=== PATIENT | male | born 1950 | race Caucasian/White ===

== ENCOUNTER 2017-01-11 10:41 | Emergency (ER) | payer MEDICARE, BC ==
[~2017-01-11] VITALS: Ht 167.6 cm; Wt 90.0 kg
[2017-01-11 10:43] VITALS: BP 203/94; PULSE 79; RESP 14; TEMP 98.2; O2SAT 96
[2017-01-11] MEDS ORDERED: FLEC1TAB8 PO (11:23)
[2017-01-11] MEDS ORDERED: ASPI81CH CHEW (11:23)
[2017-01-11] MEDS ORDERED: HYDR-3583 PO (11:23)
[2017-01-11] MEDS ORDERED: PREV30CA11 PO (11:23)
[2017-01-11] MEDS ORDERED: TIZA4TAB PO (11:23)
[2017-01-11] MEDS ORDERED: LEVO.15 PO (11:23)
[2017-01-11] MEDS ORDERED: CLIN1CAP6 PO (11:23)
[2017-01-11] MEDS ORDERED: MORP1TAB26 PO (11:23)
[2017-01-11] MEDS ORDERED: MEDR4PAK PO (11:24)
[2017-01-11 11:41] LABS: AUTOMATED NEUTROPHIL # 8.9 TH/MM3 (1.8-7.7); BASOPHIL # 0.1 TH/MM3 (0-0.2); EOSINOPHIL # 0.3 TH/MM3 (0-0.4); EOSINOPHIL % 2.7 % (0.0-4.0); HEMO FLAGS DIFF FINAL; LYMPH % 8.7 % (9.0-44.0); MEAN CELL VOLUME 76.1 FL (80.0-100.0); MEAN CORPUSCULAR HEMOGLOBIN 24.6 PG (27.0-34.0); MEAN CORPUSCULAR HGB CONC 32.4 % (32.0-36.0); MONO % 11.5 % (0.0-8.0); NEUT % 76.1 % (16.0-70.0); PLATELET COUNT 358 TH/MM3 (150-450); RED BLOOD COUNT 4.34 MIL/MM3 (4.50-5.90); RED CELL DISTRIBUTION WIDTH 17.1 % (11.6-17.2); WHITE BLOOD COUNT 11.8 TH/MM3 (4.0-11.0)
[2017-01-11 11:48] LABS: APTT (PATIENT) 34.1 SEC (24.3-30.1); INTERNATIONAL NORMALIZED RATIO 1.1 RATIO; PROTHROMBIN TIME - PATIENT 12.1 SEC (9.8-11.6)
[2017-01-11 11:55] LABS: ANION GAP 8 MEQ/L (5-15); AST (GOT) 12 U/L (15-37); BLOOD UREA NITROGEN 16 MG/DL (7-18); CHLORIDE 101 MEQ/L (98-107); GLOMERULAR FILTRATION RATE 85 ML/MIN (>89); POTASSIUM 3.9 MEQ/L (3.5-5.1); SODIUM (NA) 133 MEQ/L (136-145)
[2017-01-11 12:00] LABS: ALKALINE PHOSPHATASE 97 U/L (45-117); ALT (GPT) 15 U/L (12-78); TOTAL BILIRUBIN ADULT 0.4 MG/DL (0.2-1.0)
--- NOTE | 2017-01-11 12:26 | RADRPT ---
EXAM DATE/TIME: 01/11/2017 12:03 [facility] COMPARISON: No previous studies available for comparison. INDICATIONS : Cephalgia for 2 weeks, now with loss of right side peripheral vision. RADIATION DOSE: 32.78 CTDIvol (mGy) MEDICAL HISTORY : None SURGICAL HISTORY : None. ENCOUNTER: Initial ACUITY: 1 day PAIN SCALE: 4/10 LOCATION: Bilateral cranial TECHNIQUE: Multiple contiguous axial images were obtained of the head. Using automated exposure control and adj ustment of the mA and/or kV according to patient size, radiation dose was kept as low as reasonably a chievable to obtain optimal diagnostic quality images. DICOM format image data is available electro nically for review and comparison. FINDINGS: CEREBRUM: The ventricles are normal for age. No evidence of midline shift, mass lesion, hemorrhage or acute in farction. No extra-axial fluid collections are seen. POSTERIOR FOSSA: The cerebellum and brainstem are intact. The 4th ventricle is midline. The cerebellopontine angle i s unremarkable. EXTRACRANIAL: The visualized portion of the orbits is intact. SKULL: The calvaria is intact. No evidence of skull fracture. CONCLUSION: Negative; MRI, MRA of brain and carotid suggested. Aurelio Roque MD FACR on January 11, 2017 at 12:24 Board Certified Radiologist. This report was verified electronically.
[2017-01-11] MEDS ORDERED: predniSONE 20 MG TAB PO ONE (12:45)
[2017-01-11 13:00] VITALS: BP 138/67; PULSE 62; RESP 15; O2SAT 96
[2017-01-11] MEDS ORDERED: PRED20 PO (13:14)
--- NOTE | 2017-01-11 13:14 | PD ---
HPI Chief Complaint: Eye Problems/Injury Time Seen by Provider: 10:58 Travel History International Travel<30 days: No Contact w/Intl Traveler<30days: No Traveled to known affect area: No History of Present Illness HPI Patient is a 66-year-old male who comes in complaining of decrease in his peripheral vision. He says he has been having issues with the headache for the past 2 weeks. He says it's been a bandlike headache, worse in his temporal area. He did see his primary care doctor who gave him a Medrol dose pack which she finished a week ago. He says this helped, but then the headache came back. He has noticed worsening of his vision. He denies nausea or vomiting. He denies any weakness to his arms or legs. He denies fever or chills. PFSH Past Medical History Hx Anticoagulant Therapy: Yes (2 BABY ASA DAILY) Anemia: Yes Atrial Fibrillation: Yes Cancer: Yes (benign basal cell carcinoma) Hypertension: Yes Past Surgical History Abdominal Surgery: Yes (hernia) Social History Alcohol Use: Yes (infrequent) Tobacco Use: No Substance Use: No Allergies-Medications (Allergen,Severity, Reaction): Coded Allergies: No Known Allergies (Unverified , 01/11/17) Reported Meds & Prescriptions Reported Meds & Active Scripts Active Prednisone 20 Mg Tab 40 Mg PO DAILY Take 40 mg (2 tablets) daily for 5 days Reported Medrol Dosepak (Methylprednisolone) 4 Mg Dspk 4 Mg PO DIRECTED Per Pharmacist direction Aspirin 81 Mg Chew 81 Mg CHEW DAILY Prevacid (Lansoprazole) 30 Mg Capdr 30 Mg PO DAILY Synthroid (Levothyroxine Sodium) 150 Mcg Tab 150 Mcg PO DAILY Tizanidine (Tizanidine HCl) 4 Mg Tab 4 Mg PO TID Morphine ER (Morphine Sulfate) 60 Mg Tab 60 Mg PO BID Hydrocodone-Acetaminophen 10-325 mg Tab 1 Tab PO Q4H PRN Flecainide (Flecainide Acetate) 50 Mg Tab 50 Mg PO BID Clindamycin (Clindamycin HCl) 300 Mg Cap 300 Mg PO Q6H Review of Systems Except as stated in HPI: all other systems reviewed are Neg General / Constitutional: No: Fever, Chills Eyes: Positive: Blurred Vision HENT: Positive: Headaches, No: Lightheadedness Cardiovascular: No: Chest Pain or Discomfort Respiratory: No: Shortness of Breath Gastrointestinal: No: Nausea, Vomiting Genitourinary: No: Dysuria Musculoskeletal: No: Myalgias Skin: No Rash, No Change in Pigmentation Neurologic: No: Weakness, Dizziness Physical Exam Narrative GENERAL: Awake and alert, in no acute distress. SKIN: Focused skin assessment warm/dry. HEAD: Atraumatic. Normocephalic. EYES: Pupils equal and round. No scleral icterus. Decreased peripheral vision on the right. Extraocular movements intact. ENT: Mucous membranes pink and moist. NECK: Trachea midline. No JVD. CARDIOVASCULAR: Regular rate and rhythm. No murmur appreciated. RESPIRATORY: No accessory muscle use. Clear to auscultation. Breath sounds equal bilaterally. GASTROINTESTINAL: Abdomen soft, non-tender, nondistended. MUSCULOSKELETAL: No obvious deformities. No clubbing. No cyanosis. No edema. NEUROLOGICAL: Awake and alert. No obvious cranial nerve deficits. Motor grossly within normal limits. Normal speech. PSYCHIATRIC: Appropriate mood and affect; insight and judgment normal. Data Data Last Documented VS Vital Signs Date Time Temp Pulse Resp B/P (MAP) Pulse Ox O2 Delivery O2 Flow Rate FiO2 01/11/17 13:35 01/11/17 13:00 62 15 96 01/11/17 10:43 98.2 Orders Orders Iv Access Insert/Monitor (01/11/17 11:07) Complete Blood Count With Diff (01/11/17 11:07) Comprehensive Metabolic Panel (01/11/17 11:07) Westergren Sedimentation Rate (01/11/17 11:07) Act Partial Throm Time (Ptt) (01/11/17 11:07) Prothrombin Time / Inr (Pt) (01/11/17 11:07) Electrocardiogram (01/11/17 ) Troponin I (01/11/17 11:07) Ct Brain W/O Iv Contrast(Rout) (01/11/17 ) Prednisone (Deltasone) (01/11/17 12:45) Ed Discharge Order (01/11/17 13:14) Labs Laboratory Tests Test 01/11/17 11:22 White Blood Count 11.8 TH/MM3 Red Blood Count 4.34 MIL/MM3 Hemoglobin 10.7 GM/DL Hematocrit 33.0 % Mean Corpuscular Volume 76.1 FL Mean Corpuscular Hemoglobin 24.6 PG Mean Corpuscular Hemoglobin Concent 32.4 % Red Cell Distribution Width 17.1 % Platelet Count 358 TH/MM3 Mean Platelet Volume 8.7 FL Neutrophils (%) (Auto) 76.1 % Lymphocytes (%) (Auto) 8.7 % Monocytes (%) (Auto) 11.5 % Eosinophils (%) (Auto) 2.7 % Basophils (%) (Auto) 1.0 % Neutrophils # (Auto) 8.9 TH/MM3 Lymphocytes # (Auto) 1.0 TH/MM3 Monocytes # (Auto) 1.4 TH/MM3 Eosinophils # (Auto) 0.3 TH/MM3 Basophils # (Auto) 0.1 TH/MM3 CBC Comment DIFF FINAL Differential Comment Erythrocyte Sedimentation Rate 60 mm/hr Prothrombin Time 12.1 SEC Prothromb Time International Ratio 1.1 RATIO Activated Partial Thromboplast Time 34.1 SEC Blood Urea Nitrogen 16 MG/DL Creatinine 0.89 MG/DL Random Glucose 102 MG/DL Total Protein 7.1 GM/DL Albumin 2.6 GM/DL Calcium Level 8.4 MG/DL Alkaline Phosphatase 97 U/L Aspartate Amino Transf (AST/SGOT) 12 U/L Alanine Aminotransferase (ALT/SGPT) 15 U/L Total Bilirubin 0.4 MG/DL Sodium Level 133 MEQ/L Potassium Level 3.9 MEQ/L Chloride Level 101 MEQ/L Carbon Dioxide Level 24.0 MEQ/L Anion Gap 8 MEQ/L Estimat Glomerular Filtration Rate 85 ML/MIN Troponin I LESS THAN 0.02 NG/ML MDM Medical Decision Making Medical Screen Exam Complete: Yes Emergency Medical Condition: Yes Differential Diagnosis Temporal cell arteritis versus migraine versus CVA Narrative Course Patient is a 66-year-old male who comes in complaining of decreased vision on the right as well as a bandlike headache. He says currently he is not having any pain. IV established, labs sent. He does have decreased peripheral vision on exam. Labs show elevated ESR to 60. CT of his head performed shows no acute abnormalities. I spoke with Dr. West of neurology who believes this is likely temporal cell arteritis. He advises high-dose steroids and follow-up for temporal artery biopsy. Patient given information to follow up with vascular surgery. Given prednisone and a prescription for prednisone. He is advised follow-up with his primary care doctor. Advised to return to the ED as needed for any worsening symptoms. Diagnosis Primary Impression: Temporal giant cell arteritis Referrals: Tere West MD call for appointment Lele Puri MD call for appointment Patient Instructions: General Instructions, Temporal Arteritis (ED) Additional Instructions: Follow-up with either vascular surgery (Dr. Puri) or ENT (Dr. Sanchez)for biopsy of her temporal artery. Take your steroids as prescribed. Follow-up with her primary care doctor as you will need to be tapered off of the steroids , do not stopped them abruptly. Return to the ED as needed for any worsening symptoms. Scripts Prednisone (Prednisone) 20 Mg Tab 40 MG PO DAILY, #10 TAB 0 Refills Take 40 mg (2 tablets) daily for 5 days Prov: Gabriela Gamboa MD 01/11/17 Disposition: 01 DISCHARGE HOME Condition: Stable Gabriela Gamboa MD Jan 11, 2017 13:14
--- NOTE | 2017-01-11 15:56 | EKG ---
Date Performed: 01/11/2017 Time Performed: 11:30:52 PTAGE: 66 years EKG: Sinus rhythm RIGHT BUNDLE BRANCH BLOCK ABNORMAL ECG Compared to prior electrocardiogram right bundle branch block is now present. PREVIOUS TRACING : 11/16/2004 12.57 DOCTOR: Oumar Aaron Interpretating Date/Time 01/11/2017 15:55:11
== END 2017-01-11 13:40 | disposition home or self-care (01) ==
LOC: NEPC 10:41
DX: M31.6 Other giant cell arteritis (principal); R51 Headache; H54.7 Unspecified visual loss; D64.9 Anemia, unspecified; R70.0 Elevated erythrocyte sedimentation rate; I48.91 Unspecified atrial fibrillation; I10 Essential (primary) hypertension; Z79.82 Long term (current) use of aspirin; Z79.899 Other long term (current) drug therapy
CPT/HCPCS: 70450; 80053; 84484; 85025; 85610; 85652; 85730; 93005; 99285; J7512

== ENCOUNTER 2017-06-13 18:08 | Emergency (ER) | payer MEDICARE, BC ==
[~2017-06-13] VITALS: Ht 167.6 cm; Wt 92.0 kg
[~2017-06-13 18:08] MED LIST: ASPI-516 CHEW; CLIN300C5 PO; FLEC1TAB8 PO; HYDR-3583 PO; LEVO.15 PO; MEDR4PAK PO; MORP1TAB26 PO; PRED20 PO; PREV30CA36 PO; TIZA4TAB PO
[2017-06-13 18:14] VITALS: BP 222/105; PULSE 71; RESP 16; TEMP 98.3; O2SAT 99
--- NOTE | 2017-06-13 19:12 | RADRPT ---
EXAM DATE/TIME: 06/13/2017 19:04 [facility] COMPARISON: No previous studies available for comparison. INDICATIONS : Chest pain. MEDICAL HISTORY : None. SURGICAL HISTORY : None. ENCOUNTER: Initial ACUITY: 1 day PAIN SCORE: 5/10 LOCATION: Bilateral chest FINDINGS: PA and lateral views of the chest demonstrate the lungs to be symmetrically aerated without evidence of mass, infiltrate or effusion. The cardiomediastinal contours are unremarkable. Osseous structure s are intact. CONCLUSION: No evidence of acute cardiopulmonary disease. Fabian Ge MD on June 13, 2017 at 19:10 Board Certified Radiologist. This report was verified electronically.
[2017-06-13 20:01] VITALS: RESP 16; O2SAT 100
[2017-06-13 20:14] VITALS: BP 191/91; RESP 16
[2017-06-13 20:16] VITALS: BP 199/93; RESP 19
[2017-06-13 20:17] VITALS: BP 179/95; RESP 17
--- NOTE | 2017-06-13 20:19 | PD ---
HPI Chief Complaint: Medical Clearance Time Seen by Provider: 20:05 Travel History International Travel<30 days: No Contact w/Intl Traveler<30days: No Traveled to known affect area: No History of Present Illness HPI 67-year-old male presents to emergency department at the request of his search marketing analyst for evaluation of DVTs that were found on ultrasound today. Patient states that about a week ago he developed a pain in his right groin with an associated lump and he had a follow-up ultrasound today. States states that he does have some "numbness" to his anterior thigh. States he also has some acute increased swelling to the right lower extremity. Patient has a history of atrial fibrillation status post ablation 1 week ago at [facility] in [place]. Patient denies fever, chills, chest pain, shortness breath, abdominal pain, leg pain. States he has been on Eliquis 5 mg twice daily for approximately 3 months. Says he has a history of high blood pressure but states he does not any longer. PFSH Past Medical History Hx Anticoagulant Therapy: Yes (eloquis) Anemia: Yes Atrial Fibrillation: Yes Cancer: Yes (benign basal cell carcinoma) Hypertension: Yes Tetanus Vaccination: Unknown Past Surgical History Abdominal Surgery: Yes (hernia) Cardiac Surgery: Yes (ablation) Social History Alcohol Use: Yes (infrequent) Tobacco Use: No Substance Use: No Allergies-Medications (Allergen,Severity, Reaction): Coded Allergies: No Known Allergies (Unverified Adverse Reaction, Unknown, 06/13/17) Reported Meds & Prescriptions Reported Meds & Active Scripts Active Reported Eliquis (Apixaban) 5 Mg Tab 5 Mg PO BID Zantac (Ranitidine HCl) 150 Mg Tab 150 Mg PO BID Atorvastatin (Atorvastatin Calcium) 40 Mg Tab 40 Mg PO HS Tums (Calcium Carbonate (Antacid)) 500 Mg Chew 500 Mg CHEW PRN Prednisone 10 Mg Tab 15 Mg PO DAILY Prevacid (Lansoprazole) 30 Mg Capdr 30 Mg PO DAILY Synthroid (Levothyroxine Sodium) 150 Mcg Tab 150 Mcg PO DAILY Morphine ER (Morphine Sulfate) 60 Mg Tab 60 Mg PO BID Hydrocodone-Acetaminophen 10-325 mg Tab 1 Tab PO Q4H PRN Flecainide (Flecainide Acetate) 50 Mg Tab 50 Mg PO BID Review of Systems Except as stated in HPI: all other systems reviewed are Neg Physical Exam Narrative GENERAL: WD, WN in NAD SKIN: Focused skin assessment warm/dry. HEAD: Atraumatic. Normocephalic. EYES: Pupils equal and round. No scleral icterus. No injection or drainage. ENT: No nasal bleeding or discharge. Mucous membranes pink and moist. NECK: Trachea midline. No JVD. CARDIOVASCULAR: Regular rate and rhythm. No murmur appreciated. RESPIRATORY: No accessory muscle use. Clear to auscultation. Breath sounds equal bilaterally. GASTROINTESTINAL: Abdomen soft, non-tender, nondistended. Hepatic and splenic margins not palpable. MUSCULOSKELETAL: No obvious deformities. No clubbing. No cyanosis. RLE +1 pitting edema, dorsalis pedis present bilaterally. NEUROLOGICAL: Awake and alert. No obvious cranial nerve deficits. Motor grossly within normal limits. Normal speech. PSYCHIATRIC: Appropriate mood and affect; insight and judgment normal. Data Data Last Documented VS Vital Signs Date Time Temp Pulse Resp B/P (MAP) Pulse Ox O2 Delivery O2 Flow Rate FiO2 06/13/17 21:21 06/13/17 21:16 60 18 97 06/13/17 20:01 Room Air 06/13/17 18:14 98.3 Orders Orders Chest, Pa & Lat (06/13/17 18:49) Ed Discharge Order (06/13/17 21:09) MDM Medical Decision Making Medical Screen Exam Complete: Yes Emergency Medical Condition: Yes Differential Diagnosis DVT, aneurysm, hernia Narrative Course 67-year-old male presents emergency department for evaluation of a DVT that was found today on ultrasound. Patient presented to his search marketing analyst with right groin pain and he referred the patient to ultrasound to rule out possible hernia versus occlusion. The ultrasound results from [facility] states conclusion nonocclusive thrombus in the common femoral and right iliac veins. There are 2 femoral artery pseudoaneurysms identified as described above. According to the note, findings were discussed with Dr. luo patient was advised to go to the emergency department regarding these findings. Note Dr. Walker is his search marketing analyst however, he was unavailable in the office today. Labs and imaging studies ordered. Last Impressions Chest X-Ray 06/13/17 [id number] Signed Impressions: Service Date/Time: May 19:04 - CONCLUSION: No evidence of acute cardiopulmonary disease. Fabian Ge MD I spoke with Dr. Puri. I explained the findings of the ultrasound in depth to him. I explained that patient had an ablation recently and has been on Eliquis for 3 months and states compliance with this medication. He says that patient would not necessarily need admission for bridge to Coumadin. Based on the findings and explanations I provided to him today, he believes that this may be managed as an outpatient. States that patient will need serial ultrasounds to ensure stability. States that patient may follow-up in his office tomorrow for evaluation. I gave the information from this patient and he states that his office would contact the patient in the morning for follow-up. After this consult, I canceled the labs as patient is stable and does not require admission for treatment or monitoring. I discussed the treatment plan with the patient and patient agreed. Patient was happy to go home and will follow up with Dr. Puri as we discussed. I gave the patient the phone number to his office. Patient states understanding will comply. Diagnosis Primary Impression: DVT (deep venous thrombosis) Qualified Codes: I82.411 - Acute embolism and thrombosis of right femoral vein Admitting Information Admitting Physician Requests: Admit Referrals: Vascular Surgeon Additional Instructions: Follow-up with Dr. Puri or tomorrow as discussed. His phone number is . His office should call you tomorrow however, I recommend calling his office in the morning to ensure quick follow-up. Continue your home medications as discussed. If your symptoms persist or worsen return to the emergency department. Disposition: 01 DISCHARGE HOME Condition: Stable Irene Larios Jun 13, 2017 20:19
[2017-06-13] MEDS ORDERED: PRED10 PO (20:23)
[2017-06-13] MEDS ORDERED: APIX5TAB PO (20:23)
[2017-06-13] MEDS ORDERED: ATOR40TA16 PO (20:23)
[2017-06-13] MEDS ORDERED: TUMS500C CHEW (20:23)
[2017-06-13] MEDS ORDERED: ZANT150T2 PO (20:23)
[2017-06-13 21:16] VITALS: BP 135/63; PULSE 60; RESP 18; O2SAT 97
[2017-06-14] MEDS ORDERED: VITA250T3 PO (10:08)
[2017-06-14] MEDS ORDERED: PRED10 PO (10:33)
--- NOTE | 2017-06-15 18:10 | EKG ---
Date Performed: 06/13/2017 Time Performed: 20:52:42 PTAGE: 67 years EKG: Sinus rhythm NORMAL ECG Compared to PREVIOUS TRACING , the right bundle branch block pattern is no longer present. Previous h eart rate was 67, and this heart rate is 62. This could be a rate-related right bundle branch block. PREVIOUS TRACIN01/11/2017 11.30 DOCTOR: Geoffrey Sutton Interpretating Date/Time 06/15/2017 18:09:03
== END 2017-06-13 21:21 | disposition home or self-care (01) ==
LOC: NEPC 18:08
DX: I82.411 Acute embolism and thrombosis of right femoral vein (principal); I10 Essential (primary) hypertension; I48.91 Unspecified atrial fibrillation; D64.9 Anemia, unspecified; R20.0 Anesthesia of skin; Z79.899 Other long term (current) drug therapy
CPT/HCPCS: 71046; 93005

== ENCOUNTER 2017-06-14 09:53 | Day surgery (SDC) | payer MEDICARE, BC ==
[2017-06-14] VITALS (7 sets, daily range): BP systolic 118–198; BP diastolic 59–100; PULSE 62–81; RESP 17–20; TEMP 97.9–98.3; O2SAT 94–98
[~2017-06-14] VITALS: Ht 167.6 cm; Wt 92.3 kg
[~2017-06-14 09:53] MED LIST changes: +APIX5TAB PO; -ASPI-516 CHEW; +ATOR40TA16 PO; -CLIN300C5 PO; -MEDR4PAK PO; +PRED10 PO; -PRED20 PO; -TIZA4TAB PO; +TUMS500C CHEW; +ZANT150T2 PO
[2017-06-14] MEDS ORDERED: VITA250T3 PO (10:08)
[2017-06-14] MEDS ORDERED: SODIUM CHLORIDE 0.9% 1000 ML IV SCH (10:15)
[2017-06-14] MEDS ORDERED: PRED10 PO (10:33)
[2017-06-14 10:47] LABS: AUTOMATED NEUTROPHIL # 5.7 TH/MM3 (1.8-7.7); BASOPHIL % 0.4 % (0.0-2.0); EOSINOPHIL # 0.1 TH/MM3 (0-0.4); EOSINOPHIL % 1.4 % (0.0-4.0); HEMATOCRIT 37.7 % (39.0-51.0); LYMPH % 23.6 % (9.0-44.0); LYMPHOCYTE # 2.1 TH/MM3 (1.0-4.8); MEAN CELL VOLUME 94.6 FL (80.0-100.0); MEAN CORPUSCULAR HEMOGLOBIN 32.5 PG (27.0-34.0); MEAN CORPUSCULAR HGB CONC 34.3 % (32.0-36.0); MEAN PLATELET VOLUME 8.8 FL (7.0-11.0); MONO % 9.8 % (0.0-8.0); MONOCYTE # 0.9 TH/MM3 (0-0.9); NEUT % 64.8 % (16.0-70.0); PLATELET COUNT 143 TH/MM3 (150-450); RED BLOOD COUNT 3.99 MIL/MM3 (4.50-5.90); WHITE BLOOD COUNT 8.7 TH/MM3 (4.0-11.0)
[2017-06-14] MEDS ORDERED: LABETALOL HCL 100 MG/20 ML VIAL IV ONE (11:00)
[2017-06-14] MEDS ORDERED: THROMBIN (TOPICAL) 5,000 UNIT VIAL ONE (11:31)
--- NOTE | 2017-06-14 12:03 | PD.RAD ---
Post Procedure Progress Note Pre Procedure Diagnosis: (1) Postoperative groin pseudoaneurysm Post Procedure Diagnosis: (1) Postoperative groin pseudoaneurysm Procedure Date: Jun 14, 2017 Supervising Radiologist: Teddy Roque Estimated blood loss: none Anesthesia: Local Plan of Activity Patient to Unit: ROPU Patient Condition: Good Additional Comments: Successful thrombosis of the right groin pseudoaneurysm. approximately 1cc total of thrombin administered. Distal flow to leg was intact post procedure. Pt. tolerated the procedure well Full dictated report to follow See PACS Report for procedural detail/treatment Teddy Roque MD Jun 14, 2017 12:02
--- NOTE | 2017-06-14 13:42 | RADRPT ---
EXAM DATE/TIME: 06/14/2017 11:11 [facility] COMPARISON: No previous studies available for comparison. INDICATIONS : Patient with right groin pseudoaneurysm from a cardiac cath 1 week ago. MEDICAL HISTORY : 1. HTN 2. DVT 3. temporal arteritis 4Anemia 5. basal cell carcinoma SURGICAL HISTORY : 1. Lt knee repair 2. Rt hip 3. rotator cuff repair 4. lt carpal tunnel 5. heart cath. ENCOUNTER: Initial ACUITY: 1 week PAIN SCORE: 2/10 LOCATION: Right groin IMAGE SERIES: 5 ACCESS SITE: Right femoral vein MEDICATION(S): 1.) 4 units thrombin IV TECH NOTE: 4 CC THROMBIN WAS INJECTED.SITA SANABRIA MR#:[id number] :48 Exam Dt/Desc: June 14, 2017 TRANSCATH IV OCCLUSSION, FEMORAL PSEUDOANEURYSM, RIGHT PROCEDURE : 1. Ultrasound guided puncture of pseudoaneurysm. 2. Thrombin injection of pseudoaneurysm. The risks, benefits and alternatives to the procedure were explained and verbal and written consent w as obtained. The site was prepped in sterile fashion. Full sterile technique was used, including ca p, mask, sterile gloves and gown and a large sterile sheet. Hand hygiene and 2% chlorhexidine and/or betadine/alcohol prep was utilized per protocol for cutaneous antisepsis. Sterile gel and sterile p robe cover were utilized for ultrasound guidance. The skin and subcutaneous tissues were infiltrate d with local anesthetic solution. Ultrasonography was performed of the pseudoaneurysm in the right groin. With ultrasound guidance the pulsatile mass was accessed and approximately 1.5 cc of thrombin was injected. Followup ultrasound e xamination demonstrates complete stasis of flow within the pseudoaneurysm. The patient tolerated the procedure well. There were no changes in the blood flow to the distal extre mity. CONCLUSION: Uncomplicated occlusion of pseudoaneurysm as above. Teddy Roque MD on June 14, 2017 at 13:38 Board Certified Radiologist. This report was verified electronically.
== END 2017-06-14 13:40 | disposition home or self-care (01) ==
LOC: HROP 09:53 → HRIP 09:53 → HROP 13:40
PROVIDERS: ATTEND Internal Medicine Interventional Cardiology
DX: I72.4 Aneurysm of artery of lower extremity (principal); Y84.0 Cardiac catheterization as the cause of abnormal reaction of the patient, or of later complication, without mention of misadventure at the time of the procedure; I10 Essential (primary) hypertension; I82.509 Chronic embolism and thrombosis of unspecified deep veins of unspecified lower extremity; Z01.818 Encounter for other preprocedural examination
CPT/HCPCS: 36002; 76942; 85025; 85610; 85730

== ENCOUNTER 2017-06-20 11:37 | Day surgery (SDC) | payer MEDICARE, BC ==
[~2017-06-20 11:37] MED LIST changes: -ATOR40TA16 PO; -PREV30CA36 PO; -TUMS500C CHEW; +VITA250T3 PO; -ZANT150T2 PO
[2017-06-20 11:53] VITALS: BP 171/98; PULSE 74; RESP 20; TEMP 98.3; O2SAT 96
--- NOTE | 2017-06-20 17:06 | RADRPT ---
EXAM DATE/TIME: 06/20/2017 12:30 [facility] COMPARISON : INDICATIONS : Follow up pseudo aneurism treatment Right groin OBJECTIVE: Temperature: 98.1 Heart Rate: 74 Blood Pressure: 171/89 Respiratory: 20 Oximetry: 96 HISTORY OF PRESENT ILLNESS: The patient is a pleasant 67-year-old who underwent cardiac ablation for atrial fibrillation at the [facility]. The patient was seen by Dr. Omer on 06/14/17. At that time the patient was noted to have a large pseudoaneurysm in the right groin. The patient was referred to [facility] ER. Th e patient subsequently underwent thrombin administration into the pseudoaneurysm. PAST MEDICAL HISTORY : DVT PHYSICAL EXAMINATION: The examination demonstrates a palpable mass in the right groin. There is diffuse bruising involving the right groin and extending down the right leg. There is no significant swelling of the right lower extremity. The right groin was examined with ultrasound. There is a hard lump in the right groin. This represent s a sizable thrombosed hematoma. Flow was noted within the common femoral artery. The patient has no complaints of claudication or oth er symptoms related to the distal right lower extremity. ASSESSMENT: The patient is 7 days out from thrombin administration into a large pseudoaneurysm in the right groin . This is completely thrombosed on ultrasound examination. The patient has done well post procedure. PLAN: The patient was advised due to the sizable, thrombosed hematoma, there is a risk for infection. Shoul d he experience fever, chills, pain or drainage at the site of his previous catheterization he should followup either with us in the [facility] radiology department or with Dr. Krishnamurthy at his office. TIME SPENT: 15 minutes. Teddy Roque MD on June 20, 2017 at 16:51 Board Certified Radiologist. This report was verified electronically.
== END 2017-06-20 12:30 | disposition home or self-care (01) ==
LOC: HROP 11:37 → HRIP 11:37 → HROP 12:30
PROVIDERS: ATTEND Radiology Body Imaging
DX: I72.4 Aneurysm of artery of lower extremity (principal); I48.91 Unspecified atrial fibrillation
CPT/HCPCS: 99211; G0463